=== PATIENT | female | born 1985 | race Caucasian/White ===

== ENCOUNTER 2016-05-17 22:11 | Emergency (ER) | payer MEDICAID ==
[~2016-05-17] VITALS: Ht 177.8 cm; Wt 128.1 kg
[2016-05-17 22:37] VITALS: BP 143/77
--- NOTE | 2016-05-18 00:39 | NUR ---
PATIENT PRESENTS TO ED WITH RT SIDED TOOTHACHE X2DAYS . PT STATES THE PAIN WORSENS WITH TALKING AND/OR CHEWING . DENIES N/V/D; SKIN IS PINK/WARM/DRY; AAOX4 WITH EVEN AND STEADY GAIT; LUNGS CLEAR BL; HR EVEN AND REGULAR; PT DENIES ANY FEVER, CP, SOB, OR COUGH AT THIS TIME; PATIENT STATES PAIN OF 10/10 AT THIS TIME; VSS; PATIENT POSITIONED FOR COMFORT; HOB ELEVATED; BEDRAILS UP X2; BED DOWN. ER MD MADE AWARE OF PT STATUS. FRIEND AT BEDSIDE AT THIS TIME
--- NOTE | 2016-05-18 00:41 | NUR ---
Patient to bed 04.
--- NOTE | 2016-05-18 00:58 | NUR ---
Dr. Johnson evaluating patient at bedside.
[2016-05-18] MEDS ORDERED: AMOXICILLIN 500 MG CAP PO ONE (01:05)
[2016-05-18] MEDS ORDERED: ACETAMINOPHEN/CODEINE 300/30MG 1 TAB PO ONE (01:05)
[2016-05-18 02:03] VITALS: BP 129/81
--- NOTE | 2016-05-18 02:03 | NUR ---
Patient discharged with v/s stable. Written and verbal after care instructions given and explained. Patient alert, oriented and verbalized understanding of instructions. Ambulatory with steady gait. All questions addressed prior to discharge. ID band removed. Patient advised to follow up with PMD. Rx of TYLENOL WITH CODEINE AND AMOXICILLIN 500MG PO TID given. Patient educated on indication of medication including possible reaction and side effects. Opportunity to ask questions provided and answered. FAMILY AT BEDSIDE AT THIS TIME
== END 2016-05-18 02:03 | disposition home or self-care (01) ==
LOC: MED 22:11
DX: K04.7 Periapical abscess without sinus (principal)
CPT/HCPCS: 99283

== ENCOUNTER 2016-11-08 22:56 | Emergency (ER) | payer MEDICAID ==
[~2016-11-08] VITALS: Ht 177.8 cm; Wt 127.0 kg
[2016-11-08 23:05] VITALS: BP 135/80
--- NOTE | 2016-11-08 23:10 | NUR ---
PT TAKEN TO [facility]
--- NOTE | 2016-11-08 23:17 | NUR ---
Dr. Alexandra evaluating patient
[2016-11-09 00:10] VITALS: BP 127/72
--- NOTE | 2016-11-09 00:10 | NUR ---
Patient discharged with v/s stable. Written and verbal after care instructions given and explained. Patient verbalized understanding. Ambulatory with steady gait. All questions addressed prior to discharge. Advised to follow up with PMD.
== END 2016-11-09 00:10 | disposition home or self-care (01) ==
LOC: MED 22:56
DX: R07.0 Pain in throat (principal)
CPT/HCPCS: 70360; 99284

== ENCOUNTER 2019-01-08 17:50 | Emergency (ER) | payer MEDICAID ==
[~2019-01-08] VITALS: Ht 177.8 cm; Wt 125.6 kg
[2019-01-08 18:11] VITALS: BP 124/71
--- NOTE | 2019-01-08 19:13 | NUR ---
AMBULATES TO BED 03 WITH STEADY GAIT IN UPRIGHT POSITION.
--- NOTE | 2019-01-08 19:18 | NUR ---
LAYING IN BED ON SIDE. APPEARS UNCOMFORTABLE. SKIN PINK, WARM, DRY. BREATHING EVEN, UNLABORED. ABD SOFT, ROUND, NON-TENDER. BOWEL SOUNDS ACTIVE +4. CALM, COOPERATIVE. NO S/SX ACUTE DISTRESS AT THIS TIME.
--- NOTE | 2019-01-08 20:01 | NUR ---
PTWENT TO RAD BY WHEEL CHAIR
--- NOTE | 2019-01-08 20:11 | NUR ---
RETURNS FROM XRAY VIA .
--- NOTE | 2019-01-08 20:21 | NUR ---
PHLEB AT BEDSIDE DRAWING LABS.
[2019-01-08] MEDS: NACL 0.9% 1,000 ML IV ONE (20:23)
[2019-01-08] MEDS: KETOROLAC 30 MG/ML VIAL IVP ONE (20:24)
[2019-01-08] MEDS: ONDANSETRON 4 MG/2 ML VIAL IVP ONE (20:24)
--- NOTE | 2019-01-08 20:25 | NUR ---
RECEIVED TORADOL 30 MG IVP FOR 10/10 RANGEL AND 5/10 ABD PAIN. WILL REASSESS.
[2019-01-08 20:44] LABS: BASOPHILS % (AUTO) 0.2 % (0.0-2.0); EOSINOPHILS # (AUTO) 0.1 K/uL (0-0.4); EOSINOPHILS % (AUTO) 0.6 % (0.0-4.0); HEMATOCRIT 40.9 % (36-48); LYMPHOCYTES # (AUTO) 2.1 K/uL (2.5-16.5); LYMPHOCYTES % (AUTO) 19.7 % (20.5-51.1); MEAN CORPUSCULAR HEMOGLOBIN 30 pg (27-31); MEAN CORPUSCULAR HGB CONC 34 g/dL (33-37); MEAN CORPUSCULAR VOLUME 86.5 fL (80-94); MONOCYTES # (AUTO) 0.4 K/uL (0.8-1.0); NEUTROPHILS # (AUTO) 8.2 K/uL (1.8-7.7); NEUTROPHILS % (AUTO) 75.5 % (42.2-75.2); PLATELET COUNT (AUTO) 283 K/uL (140-450); RED BLOOD CELL COUNT(AUTO) 4.73 MIL/uL (4.20-5.40); RED CELL DISTRIBUTION WIDTH 13.2 % (11.6-13.7); WHITE BLOOD COUNT (AUTO) 10.8 K/uL (4.8-10.8)
--- NOTE | 2019-01-08 20:45 | NUR ---
REPORTS FEELING BETTER. PT STATES " I CAN STILL FEEL A LITTLE HEADACHE BUT THE THROBBING IS GONE". 5/10 PAIN.
--- NOTE | 2019-01-08 20:50 | NUR ---
FLUIDS STILL INFUSING. RESTING WITH EYES CLOSED. VSS.
[2019-01-08 21:05] LABS: ANION GAP 14.3 (8-16); CARBON DIOXIDE 26.6 mmol/L (21-32); CREATININE 0.7 mg/dL (0.6-1.3); POTASSIUM 3.9 mmol/L (3.5-5.1)
[2019-01-08 21:12] LABS: ALBUMIN 3.5 g/dL (3.4-5.0)
[2019-01-08 21:48] VITALS: BP 131/72
== END 2019-01-08 21:48 | disposition home or self-care (01) ==
LOC: MED 17:50
DX: A08.4 Viral intestinal infection, unspecified (principal); R11.10 Vomiting, unspecified
CPT/HCPCS: 36415; 74022; 80053; 81025; 83690; 85025; 96361; 96374; 96375; 99284; J1885; J2405; J7030

== ENCOUNTER 2019-09-06 19:19 | Emergency (ER) | payer MEDICAID, SELFPAY ==
[~2019-09-06] VITALS: Ht 177.8 cm; Wt 117.9 kg
[2019-09-06 19:49] VITALS: BP 137/90
== END 2019-09-06 21:17 | disposition home or self-care (01) ==
LOC: EEVIPCON 19:19 → MED 19:19
DX: U07.1 COVID-19 (principal)
CPT/HCPCS: 99283; U0003

== ENCOUNTER 2020-01-13 20:35 | Emergency (ER) | payer MEDICAID, SELFPAY ==
[~2020-01-13] VITALS: Ht 177.8 cm; Wt 127.0 kg
[2020-01-13 20:52] VITALS: BP 135/90
--- NOTE | 2020-01-13 21:26 | NUR ---
PATIENT PRESENTS TO ED WITH C/O PAIN LEFT UPPER LIP . PT STATES MY PIERCING IS SWOLLEN AND I CANT GET IT OUT. IT STARTED BOTHERING ME LAST NIGHT . DENIES N/V/D; SKIN IS PINK/WARM/DRY; AAOX4 WITH EVEN AND STEADY GAIT; LUNGS CLEAR BL; HR EVEN AND REGULAR; PT DENIES ANY FEVER, CP, SOB, OR COUGH AT THIS TIME; PATIENT STATES PAIN OF 10/10 AT THIS TIME; VSS; PATIENT POSITIONED FOR COMFORT; HOB ELEVATED; BEDRAILS UP X2; BED DOWN. ER MD MADE AWARE OF PT STATUS.
[2020-01-13] MEDS ORDERED: LIDOCAINE/EPI 1% 1:100000 20 ML VIAL INJ ONE (21:55)
--- NOTE | 2020-01-13 22:00 | NUR ---
DR. JAVED AT BEDSIDE FOR PIERCING REMOVAL
--- NOTE | 2020-01-13 22:01 | NUR ---
ERMD AT BEDSIDE FOR PROCEDURE.
[2020-01-13 22:11] VITALS: BP 135/90
--- NOTE | 2020-01-13 22:12 | NUR ---
Patient discharged with v/s stable. Written and verbal after care instructions given and explained. Patient alert, oriented and verbalized understanding of instructions. Ambulatory with steady gait. All questions addressed prior to discharge. ID band removed. Patient advised to follow up with PMD. Rx of KEFLEX AND NAPROSYN given. Patient educated on indication of medication including possible reaction and side effects. Opportunity to ask questions provided and answered.
== END 2020-01-13 22:10 | disposition home or self-care (01) ==
LOC: MED 20:35
DX: S00.551A Superficial foreign body of lip, initial encounter (principal); W45.8XXA Other foreign body or object entering through skin, initial encounter; Y93.89 Activity, other specified; Y92.89 Other specified places as the place of occurrence of the external cause; Y99.8 Other external cause status
CPT/HCPCS: 99284; J2001

== ENCOUNTER 2021-07-25 18:15 | Emergency (ER) | payer MEDICAID ==
[~2021-07-25] VITALS: Ht 177.8 cm; Wt 121.8 kg
[2021-07-25 19:05] VITALS: BP 129/79
--- NOTE | 2021-07-25 20:04 | NUR ---
ERMD AT BEDSIDE
[2021-07-25] MEDS ORDERED: KETOROLAC 60 MG/2 ML VIAL IM ONE (20:10)
[2021-07-25] MEDS ORDERED: IBUP-2213 PO (20:14)
[2021-07-25] MEDS ORDERED: CEPH-588 PO (20:14)
--- NOTE | 2021-07-25 20:30 | NUR ---
36 Y.O. BIB SELF C/O LOWER ABD PAIN, HARD, WARMTH TO TOUCH SINCE TUESDAY, PAIN WHEN SHE WALK,. PAIN IS 10/10. AREA IS WARM AND HARD TO THE TOUCH. DENIES TRAUMA, SKIN INTACT OTHER THAN ABCSESS. A&OX4, NO SOB NOR CHEST PAIN, VITALS WNL, AND STEADY GAIT.
[2021-07-25 21:14] VITALS: BP 129/79
--- NOTE | 2021-07-25 21:15 | NUR ---
Patient discharged with v/s stable. Written and verbal after care instructions given and explained. Patient alert, oriented and verbalized understanding of instructions. Ambulatory with steady gait. All questions addressed prior to discharge. ID band removed. Patient advised to follow up with PMD. Rx of KEFLEX AND IBUPROFEN. given. Patient educated on indication of medication including possible reaction and side effects. Opportunity to ask questions provided and answered.
== END 2021-07-25 20:48 | disposition home or self-care (01) ==
LOC: MED 18:15
DX: L03.311 Cellulitis of abdominal wall (principal); Z98.890 Other specified postprocedural states
CPT/HCPCS: 81002; 81025; 96372; 99283; J1885

== ENCOUNTER 2023-07-10 00:15 | Emergency (ER) | payer MEDICAID, OTHER ==
[~2023-07-10] VITALS: Ht 177.8 cm; Wt 126.6 kg
[~2023-07-10 00:15] MED LIST: CEPH-588 PO; IBUP-2213 PO
[2023-07-10 00:21] VITALS: BP 154/93; PULSE 84; RESP 16; TEMP 97.8; O2SAT 97
[2023-07-10 00:37] VITALS: BP 154/93; PULSE 84; RESP 16; TEMP 97.8; O2SAT 97
[2023-07-10] MEDS ORDERED: AMOX1TAB8 PO (00:44)
[2023-07-10] MEDS ORDERED: IBUP-2213 PO (00:44)
[2023-07-10] MEDS: DEXAMETHASONE 4 MG/ML VIAL IM ONE (01:04)
[2023-07-10] MEDS: AMOXIL/CLAVULANATE 875/125 MG 1 TAB PO ONE (01:05)
== END 2023-07-10 00:52 | disposition home or self-care (01) ==
LOC: MED 00:15
DX: J02.9 Acute pharyngitis, unspecified (principal); Z79.1 Long term (current) use of non-steroidal anti-inflammatories (NSAID); Z79.2 Long term (current) use of antibiotics
CPT/HCPCS: 87081; 96372; 99283; J1100